=== PATIENT | female | born 2000 | race African-American/Black ===

== ENCOUNTER 2018-02-01 02:06 | Emergency (ER) | payer MEDICAID, SELFPAY ==
[2018-02-01 02:08] VITALS: BP 133/75; PULSE 90; RESP 17; TEMP 36.8; O2SAT 99; BMI 24.7
--- NOTE | 2018-02-01 02:56 | ED.VISSUMM ---
- ER Visit Summary Date of Service: 02/01/18 Chief Complaint: Transient abdominal pain History of Present Illness: The patient is a 17 F transient abdominal pain lasting 20 minutes prior to arrival. Lower cramping. No urinary symptoms. week gestation by dates with last menstrual period on December 27. No vaginal bleeding or discharge. No trauma. No bowel symptoms. No vomiting. She is on vitamins. Tobacco history. 2 positive home is along with a positive at urgent care. She had an OB appointment on the unknown physician's name at this time. No other complaints. Physical Examination: General: Alert and oriented ?3, no acute distress HEENT: Normocephalic, atraumatic. Moist mucosa membranes Neck: supple, nontender. Cardiovascular: Regular rate and rhythm, no murmurs Respiratory: Normal breath sounds, symmetric, no distress Abdomen: Soft, nontender, nondistended Extremities: Nontender, no edema, pulses intact ?4 Neuro: no focal neurological deficits. Test Results: [] Emergency Department Course and Treatment: Bedside ultrasound performed, no gestational sac noted. There is fluid in between the endometrium at the uterus. No free fluid. There was a full bladder. Discussed with patient likely still early at this time. No gestational sac noted. She has no tenderness currently. She will monitor for any vaginal bleeding. Discussed with patient keep her follow-up appointment on the . She will use Tylenol as needed. She will stop smoking. Continue prenatals. All questions were answered. Treatment Plan: [] Disposition: Discharge Impression: 1. Abdominal pain and 2. First trimester This note was generated with [employer] dictation software. It may contain incorrect words, spelling, and punctuation that were not noted in review of the chart prior to signing ED Disposition - Plan for ED Patient: Disposition: Home or Assisted Living Chief Complaint: Abd Pain Diagnosis: First trimester , Abdominal pain during Instructions: : Your First Trimester Changes, ED Smoking Cessation Referrals: [facility] Doctor,Out of [Primary Care Provider] - Additional Instructions: keep follow up appointment with OB on .
--- NOTE | 2018-02-01 03:02 | ED.DCSUM_ITS ---
- ER Visit Summary Date of Service: 02/01/18 Chief Complaint: Transient abdominal pain History of Present Illness: The patient is a 17 F transient abdominal pain lasting 20 minutes prior to arrival. Lower cramping. No urinary symptoms. week gestation by dates with last menstrual period on December 27. No vaginal bleeding or discharge. No trauma. No bowel symptoms. No vomiting. She is on vitamins. Tobacco history. 2 positive home is along with a positive at urgent care. She had an OB appointment on the unknown physician's name at this time. No other complaints. Physical Examination: General: Alert and oriented ?3, no acute distress HEENT: Normocephalic, atraumatic. Moist mucosa membranes Neck: supple, nontender. Cardiovascular: Regular rate and rhythm, no murmurs Respiratory: Normal breath sounds, symmetric, no distress Abdomen: Soft, nontender, nondistended Extremities: Nontender, no edema, pulses intact ?4 Neuro: no focal neurological deficits. Test Results: [] Emergency Department Course and Treatment: Bedside ultrasound performed, no gestational sac noted. There is fluid in between the endometrium at the uterus. No free fluid. There was a full bladder. Discussed with patient likely still early at this time. No gestational sac noted. She has no tenderness currently. She will monitor for any vaginal bleeding. Discussed with patient keep her follow-up appointment on the . She will use Tylenol as needed. She will stop smoking. Continue prenatals. All questions were answered. Treatment Plan: [] Disposition: Discharge Impression: 1. Abdominal pain and 2. First trimester This note was generated with [employer] dictation software. It may contain incorrect words, spelling, and punctuation that were not noted in review of the chart prior to signing ED Disposition - Plan for ED Patient: Disposition: Home or Assisted Living Chief Complaint: Abd Pain Diagnosis: First trimester , Abdominal pain during Instructions: : Your First Trimester Changes, ED Smoking Cessation Referrals: [facility] Doctor,Out of [Primary Care Provider] - Additional Instructions: keep follow up appointment with OB on .
[2018-02-01 03:13] VITALS: PULSE 72; RESP 16; O2SAT 98
== END 2018-02-01 03:14 | disposition home or self-care (01) ==
LOC: ED 03:04
PROVIDERS: Emergency Provider Emergency Medicine
DX: R10.9 Unspecified abdominal pain (principal); O26.891 Other specified pregnancy related conditions, first trimester; Z3A.00 Weeks of gestation of pregnancy not specified; O99.331 Smoking (tobacco) complicating pregnancy, first trimester
CPT/HCPCS: 99282

== ENCOUNTER 2018-03-04 01:08 | Emergency (ER) | payer MEDICAID, SELFPAY ==
[2018-03-04 01:08] VITALS: BP 121/72; PULSE 74; RESP 15; TEMP 36.6; O2SAT 99; BMI 23.8
--- NOTE | 2018-03-04 01:12 | NURSING ---
CALLED FOR EKG PER RN REQUEST, NO OLD EKG'S IN MUSE
--- NOTE | 2018-03-04 01:19 | EKG12_ITS ---
Test Reason : CP Blood Pressure : / mmHG Vent. Rate : 070 BPM Atrial Rate : 070 BPM P-R Int : 132 ms QRS Dur : 082 ms QT Int : 368 ms P-R-T Axes : 044 046 057 degrees QTc Int : 397 ms Normal sinus rhythm Normal ECG Reconfirmed by RANDY BEGUM, MARSHALL ([id number]), writer editor SARAI DOUGHERTY ([id number] on 03/07/2018 1:49:36 PM Referred By: DR CASTILLO Confirmed By:MARSHALL PADILLA MD
--- NOTE | 2018-03-04 01:19 | RAD_ITS ---
STUDY: X-RAY CHEST REASON FOR EXAM: Female, 17 years old. Mid epigastric chest pain that started with the and now radiates to the left side. TECHNIQUE: Frontal and lateral views of the chest. COMPARISON: None. FINDINGS: The lungs are clear and expanded. There is no demonstrated pleural abnormality. Normal size heart. Normal mediastinum and ariadna. Normal visualized pulmonary arteries. Normal visualized aortic arch and descending thoracic aorta. Normal visualized thoracic spine. Normal visualized ribs, clavicles, and shoulders. There is no demonstrated abnormality of the visualized soft tissue structures of the upper abdomen. RAD/Chest PA and Lateral IMPRESSION: Normal x-ray examination of the chest. Electronically Signed: Clarence Taylor MD at 2:37 EDT , Service support ,
--- NOTE | 2018-03-04 01:22 | ED.VISSUMM ---
- ER Visit Summary Date of Service: 03/04/18 Chief Complaint: Chest pain History of Present Illness: The patient is a 17 F senior past medical history currently she is first trimester at 9-10 weeks. Believes her due date is 10/09/2018. Currently has no care as an upcoming appointment with a shot core drill operator at the [facility]. States that she had midsternal chest pain for approximately 1 week and now it is more left-sided. Denies any radiation. No shortness of breath. No hemoptysis. It is not pleuritic in nature. She denies any fever or cough. Denies any chest wall trauma. She has no underlying cardiac disease. She has never had a DVT or PE. She denies any calf pain or leg swelling. Says the pain is normally worse at night. It is not exertional. She denies any back pain. There is no radiation of the pain. She has never had anything like this before. Physical Examination: Very well-appearing young female. Vital signs are stable and afebrile. Pulse ox is 9 9% on room air no signs of hypoxia. H EENT exam unremarkable. Neck nontender no lymphadenopathy. No JVD. Lungs clear to auscultation bilaterally. Heart regular rate and rhythm rate about 70 no murmur. Chest wall nontender. Abdomen soft nontender. Normal bowel sounds. No peritoneal signs. She is moving all 4 extremities. The neurovascular intact. Calves are nontender without edema or cords. Neurologically she is awake alert without focal motor deficits. Back exam nontender. Test Results: EKG shows a sinus rhythm a rate of 70 with no acute signs of ID or ischemia. No S1, every 3 or T3. She is a sinus rhythm at 70. No tachycardia. Liz two-view shows a normal cardiac silhouette and mediastinum and lungs read by myself. CBC normal. BMP normal. Troponin normal. D-dimer normal at 0.44. Repeat exam patient is doing well at 0 236. Emergency Department Course and Treatment: Patient with atypical nonreproducible chest pain. I think the likelihood for having a PE is quite low. I do not feel this is cardiac in etiology. She will undergo screening labs. Treatment Plan: Patient is doing well on repeat exam will be discharged home. This does not appear to be cardiac or pulmonary embolus. Otherwise exam is unremarkable this may or may not be secondary to reflux. Disposition: Discharge Impression: Atypical chest pain First trimester This note was generated with [employer] dictation software. It may contain incorrect words, spelling, and punctuation that were not noted in review of the chart prior to signing ED Disposition - Plan for ED Patient: Chief Complaint: Chest Pain Referrals: Care Physician,No Primary [Primary Care Provider] -
--- NOTE | 2018-03-04 01:25 | ED.DCSUM_ITS ---
- ER Visit Summary Date of Service: 03/04/18 Chief Complaint: Chest pain History of Present Illness: The patient is a 17 F senior past medical history currently she is first trimester at 9-10 weeks. Believes her due date is 10/09/2018. Currently has no care as an upcoming appointment with a ecological economist at the [facility]. States that she had midsternal chest pain for approximately 1 week and now it is more left-sided. Denies any radiation. No shortness of breath. No hemoptysis. It is not pleuritic in nature. She denies any fever or cough. Denies any chest wall trauma. She has no underlying cardiac disease. She has never had a DVT or PE. She denies any calf pain or leg swelling. Says the pain is normally worse at night. It is not exertional. She denies any back pain. There is no radiation of the pain. She has never had anything like this before. Physical Examination: Very well-appearing young female. Vital signs are stable and afebrile. Pulse ox is 9 9% on room air no signs of hypoxia. H EENT exam unremarkable. Neck nontender no lymphadenopathy. No JVD. Lungs clear to auscultation bilaterally. Heart regular rate and rhythm rate about 70 no murmur. Chest wall nontender. Abdomen soft nontender. Normal bowel sounds. No peritoneal signs. She is moving all 4 extremities. The neurovascular intact. Calves are nontender without edema or cords. Neurologically she is awake alert without focal motor deficits. Back exam nontender. Test Results: EKG shows a sinus rhythm a rate of 70 with no acute signs of MS or ischemia. No S1, every 3 or T3. She is a sinus rhythm at 70. No tachycardia. Liz two-view shows a normal cardiac silhouette and mediastinum and lungs read by myself. CBC normal. BMP normal. Troponin normal. D-dimer normal at 0.44. Repeat exam patient is doing well at 0 236. Emergency Department Course and Treatment: Patient with atypical nonreproducible chest pain. I think the likelihood for having a PE is quite low. I do not feel this is cardiac in etiology. She will undergo screening labs. Treatment Plan: Patient is doing well on repeat exam will be discharged home. This does not appear to be cardiac or pulmonary embolus. Otherwise exam is unremarkable this may or may not be secondary to reflux. Disposition: Discharge Impression: Atypical chest pain First trimester This note was generated with [employer] dictation software. It may contain incorrect words, spelling, and punctuation that were not noted in review of the chart prior to signing ED Disposition - Plan for ED Patient: Chief Complaint: Chest Pain Referrals: Care Physician,No Primary [Primary Care Provider] -
[2018-03-04] MEDS: Famotidine 20 MG Tablet 40 MG PO (01:34)
[2018-03-04 01:46] LABS: Anion Gap 8 (5-15); BUN 8 mg/dL (7-18); BUN/Creat Ratio 11.8 RATIO (10-20); Calcium,Total 9.1 mg/dL (8.5-10.1); Chloride 104 mmol/L (98-107); Creatinine, Serum 0.68 mg/dL (0.55-1.02); EST Glomerular Filtration Rate 118 mL/min (>60); Est Glom Filt Rate - Afr Amer 143 mL/min (>60); Estimated Creatinine Clearance 110.08 ml/min; Glucose 86 mg/dL (74-106); Potassium 3.7 mmol/L (3.5-5.1); Sodium Level 137 mmol/L (136-145)
[2018-03-04 02:26] LABS: D-Dimer Quantitative (DVT/PE) 0.44 FEU/ug/m (0.27-0.49)
[2018-03-04 02:28] LABS: Absolute Lymphocyte Count 3.18 X10^3/ul (0.83-4.51); Absolute Neutrophil Count 6.4 X10^3/uL (2.0-7.7); Basophil# 0.01 X10^3/uL; Basophil% 0.1 % (0-1); Eosinophil# 0.15 X10^3/uL; Eosinophils% 1.4 % (0-5); Hematocrit 42.5 % (37-47); Hemoglobin 14.4 g/dl (12.0-15.0); Lymphocyte # 3.18 X10^3/ul (4.0); Lymphocyte % 29.6 % (19-41); Mean Corp Hgb Conc 33.9 g/gl (32-36); Mean Corpuscular Hgb 29.5 pg (27.0-32.0); Mean Corpuscular Volume 87.1 fL (81-99); Mean Platelet Vol. 9.8 fl (6.2-12.0); Monocyte# 0.96 X10^3/uL; Monocyte% 8.9 % (0-10); Neutrophil # 6.41 X10^3/uL (2.7-7.7); Neutrophil % 59.8 % (47-70); POSITIVE COUNT NO; POSITIVE DIFFERENTIAL NO; POSITIVE MORPHOLOGY NO; Platelet Count 268 K/mm3 (150-450); RBC Distribution Width SD 41.8 fl (35.1-43.9); Red Blood Count 4.88 M/mm3 (4.2-5.4); White Blood Count 10.7 K/mm3 (4.4-11.0)
--- NOTE | 2018-03-04 02:40 | DCINST.ED_ITS ---
ED Disposition - Plan for ED Patient: Disposition: Home or Assisted Living Chief Complaint: Chest Pain Instructions: ED Chest Pain Atypical Unkn Cause Referrals: Care Physician,No Primary [Primary Care Provider] - As soon as possible Additional Instructions: May want to try [id number] Prilosec for possible reflux symptoms. Otherwise follow-up with your studio camera operator as scheduled appointment.
[2018-03-04 02:45] VITALS: BP 106/70; PULSE 66; RESP 18
== END 2018-03-04 02:45 | disposition home or self-care (01) ==
PROVIDERS: Emergency Provider Emergency Medicine
DX: R07.89 Other chest pain (principal); O26.891 Other specified pregnancy related conditions, first trimester; Z3A.09 9 weeks gestation of pregnancy; O99.331 Smoking (tobacco) complicating pregnancy, first trimester
CPT/HCPCS: 71046; 80048; 84484; 85025; 85379; 93005; 99285; A4216

== ENCOUNTER 2018-05-11 00:17 | Emergency (ER) | payer MEDICAID, SELFPAY ==
[2018-05-11 00:17] VITALS: BP 127/67; PULSE 88; RESP 16; TEMP 36; O2SAT 100; BMI 24.0
--- NOTE | 2018-05-11 00:46 | EKG12_ITS ---
Test Reason : DIZZINESS Blood Pressure : / mmHG Vent. Rate : 072 BPM Atrial Rate : 072 BPM P-R Int : 136 ms QRS Dur : 068 ms QT Int : 378 ms P-R-T Axes : 054 040 045 degrees QTc Int : 413 ms Sinus rhythm with marked sinus arrhythmia Otherwise normal ECG Confirmed by RANDY BEGUM, MARSHALL ([id number]), newspaper editor managing SARAI DOUGHERTY ([id number]) on 05/16/2018 9:13:29 AM Referred By: MARY JO Confirmed By:MARSHALL PADILLA MD
--- NOTE | 2018-05-11 00:48 | ED.VISSUMM ---
- ER Visit Summary Date of Service: 05/11/18 Chief Complaint: [] Headache with nausea and headache History of Present Illness: The patient is a 17 F [] she developed a bitemporal mild headache with lightheadedness and nausea tonight 6 PM. Gradual onset continuous. She tried to take Tylenol but can keep it down. She had 3 episodes of emesis. No history of preeclampsia. No abdominal cramping or miscarriage symptoms. No abdominal pain. She has had migraines in the past but feels this is more mild. She has had no complications with the Physical Examination: [] Vital signs reviewed General: Well-nourished well-developed Head: Normocephalic atraumatic Eyes: Pupils equal round and reactive to light extraocular movements intact ENT: TMs clear no hemotympanum no trauma Neck: Nontender full range of motion Cardiovascular: Regular rate rhythm no murmurs normal S1-S2 Respiratory: No distress clear to auscultation bilaterally chest nontender Abdomen: Soft nontender nondistended normal bowel sounds no masses Back: Nontender no CVA tenderness Extremities: Nontender active range of motion ?4 extremities no trauma Skin: Normal color no trauma Neuro alert oriented cranial nerves II through XII intact normal strength sensation reflexes Test Results: [] Emergency Department Course and Treatment: [] She given IV fluids Zofran and Tylenol. EKG obtained. G shows sinus rhythm at 72 without ischemia or arrhythmia. CBC normal except white count 13.0. Chemistry is normal except creatinine 0.5. Liver function tests normal. Patient felt better after IV fluids Zofran and Tylenol. Reevaluation symptom-free no further nausea. Will be discharged with Zofran. I do not feel she has an infection. She is resting comfortably. I do not feel she has preeclampsia. Her blood pressures normal. Treatment Plan: [] Disposition: [] Impression: [] Lightheadedness, nausea vomiting, headache This note was generated with [employer] dictation software. It may contain incorrect words, spelling, and punctuation that were not noted in review of the chart prior to signing ED Disposition - Plan for ED Patient: Chief Complaint: Dizziness Referrals: Care Physician,No Primary [Primary Care Provider] -
[2018-05-11 00:56] LABS: Hematocrit 37.1 % (37-47); Hemoglobin 12.7 g/dl (12.0-15.0); Mean Corp Hgb Conc 34.2 g/gl (32-36); Mean Corpuscular Hgb 30.5 pg (27.0-32.0); Mean Platelet Vol. 9.4 fl (6.2-12.0); Platelet Count 231 K/mm3 (150-450); RBC Distribution Width CV 13.4 % (11.6-14.6); Red Blood Count 4.17 M/mm3 (4.2-5.4)
[2018-05-11 00:57] LABS: Scan Indicated on CBC? Y/N NO
[2018-05-11 01:16] LABS: ALB/GLOB Ratio 0.8 RATIO (0.9-2.4); AST(SGOT) 13 U/L (15-37); Alanine Aminotransfer ALT/SGPT 20 U/L (13-56); Albumin, Serum 3.1 g/dL (3.2-5.0); Alkaline Phosphatase 53 U/L (45-117); Anion Gap 7 (5-15); BUN 7 mg/dL (7-18); Calcium,Total 8.8 mg/dL (8.5-10.1); Chloride 104 mmol/L (98-107); Creatinine, Serum 0.54 mg/dL (0.55-1.02); EST Glomerular Filtration Rate 155 mL/min (>60); Est Glom Filt Rate - Afr Amer 187 mL/min (>60); Estimated Creatinine Clearance 138.61 ml/min; Globulin 3.9 g/dL (2.2-4.2); Glucose 81 mg/dL (74-106); Potassium 3.6 mmol/L (3.5-5.1); Sodium Level 137 mmol/L (136-145)
[2018-05-11] MEDS: 0.9% Normal Saline 1,000 ML 1000 ML IV (01:16)
[2018-05-11] MEDS: Ondansetron 4 MG/2 ML Vial IV (01:17)
[2018-05-11] MEDS: Acetaminophen 325 MG Tablet 650 MG PO (01:17)
--- NOTE | 2018-05-11 01:46 | DCINST.ED_ITS ---
ED Disposition - Plan for ED Patient: Chief Complaint: Dizziness Instructions: ED Nausea Vomiting Prescriptions: Ondansetron [Zofran Odt] 4 mg PO Q8H PRN PRN #10 tab PRN Reason: Nausea Referrals: Care Physician,No Primary [Primary Care Provider] - Additional Instructions: Please follow with your ADMITTING INTERVIEWER
[2018-05-11 01:56] VITALS: PULSE 78; RESP 18; O2SAT 99
== END 2018-05-11 01:56 | disposition home or self-care (01) ==
LOC: ED 00:45
PROVIDERS: Emergency Provider Emergency Medicine
DX: R42 Dizziness and giddiness (principal); R11.2 Nausea with vomiting, unspecified; R51 Headache; Z72.0 Tobacco use
CPT/HCPCS: 80053; 85027; 93005; 96361; 96374; 99283; J7030; A4216; J2405

== ENCOUNTER → 2020-09-16 17:20 | Outpatient (CLI) | payer MEDICAID, SELFPAY | PROVIDERS: Referring Provider Physician Assistant; Visit Provider Physician Assistant | DX: Z20.828 Contact with and (suspected) exposure to other viral communicable diseases (principal) | CPT/HCPCS: 87635; C9803; U0003 ==